=== PATIENT | female | born 1980 | race Caucasian/White ===

== ENCOUNTER 2018-01-18 15:33 | Emergency (ER) | payer BC ==
[~2018-01-18 15:33] MED LIST: Sodium Chloride 0.9% 1,000 ML BAG ONE
[2018-01-18 16:04] LABS: #Basophils 0.1 thou/uL (0.0-0.2); #Eosinphils 0.1 thou/uL (0.0-0.7); #Lymphocytes 2.1 thou/uL (1.20-3.40); #Monocytes 0.7 thou/uL (0.11-0.59); #Neutrophils 6.1 thou/uL (1.40-6.50); %Eosinophils 0.6 % (0.0-10.0); %Lymphocytes 23.5 % (21.0-51.0); %Monocytes 7.7 % (0.0-10.0); %Neutrophils 67.3 % (42.0-75.0); Hemoglobin 15.1 g/dL (12.0-16.0); Mean Corpuscular HGB CONC 32.7 g/dL (32.0-36.0); Mean Corpuscular Volume 91.6 fL (78.0-98.0); Platelet Count 283 thou/uL (130-400); RBC Distribution Width 11.7 % (11.5-14.5); Red Blood Cell (RBC) Count 5.04 mill/uL (4.20-5.40)
[2018-01-18 16:16] LABS: Anion Gap 15 mmol/L (10-20); BUN (Urea Nitrogen) 15 mg/dL (7.0-18.7); Calc. Creatinine Clearance 0 mL/min (70-130); Calcium 9.9 mg/dL (7.8-10.44); Carbon Dioxide 24 mmol/L (22-29); Chloride 105 mmol/L (98-107); Estimated GFR-MDRD 70; Glucose 83 mg/dL (70-105); Potassium 3.9 mmol/L (3.5-5.1); Sodium 140 mmol/L (136-145)
== END 2018-01-18 17:00 | disposition home or self-care (01) ==
LOC: MADERS 15:33
DX: T67.5XXA Heat exhaustion, unspecified, initial encounter (principal); Z79.899 Other long term (current) drug therapy
CPT/HCPCS: 80048; 85025; 96360; J7050

== ENCOUNTER 2018-06-02 06:39 | Emergency (ER) | payer BC, OTHER ==
--- NOTE | 2018-06-02 09:53 | RAD ---
PA CHEST WITH 2 VIEWS LEFT SIDE RIBS: Date: 06/02/18 HISTORY: Severe left-sided rib pain. No history of trauma. FINDINGS: Cardiac silhouette and pulmonary vasculature are within normal limits. Lungs are clear. No pneumothor ax or pleural effusion identified. No left-sided rib fracture seen. IMPRESSION: 1. No acute cardiopulmonary process. 2. No left-sided rib fracture is visualized. POS: [facility]
== END 2018-06-02 07:50 | disposition home or self-care (01) ==
LOC: MADERS 06:39
DX: M94.0 Chondrocostal junction syndrome [Tietze] (principal); F17.210 Nicotine dependence, cigarettes, uncomplicated; Z79.899 Other long term (current) drug therapy